=== PATIENT | male | born 1950 | race Caucasian/White ===

== ENCOUNTER → 2017-11-11 | Outpatient (REF) | payer MEDICARE, OTHER ==
[~2017-11-11] MED LIST: ASPI-1471 PO; LISI5TAB25 PO; OMEP-218 PO
== END ==
LOC: ZZSENDIN 14:05
PROVIDERS: ATTEND Family Medicine
DX: Z00.00 Encounter for general adult medical examination without abnormal findings (principal); E87.5 Hyperkalemia
CPT/HCPCS: 82310; 82374; 82435; 82565; 82947; 84132; 84295; 84520

== ENCOUNTER → 2017-11-12 | Outpatient (CLI) | payer MEDICARE, OTHER | LOC: LAB 08:01 | PROVIDERS: ATTEND Family Medicine | DX: E78.5 Hyperlipidemia, unspecified (principal) | CPT/HCPCS: 36415; 82465; 83718; 84478 ==

== ENCOUNTER 2018-02-08 14:15 | Outpatient (RCR) | payer MEDICARE, OTHER ==
[2018-02-01 08:39] LABS: PLATELET COUNT, AUTOMATED 172 K/uL (150-450)
[2018-02-08 14:25] VITALS: BP 124/72
--- NOTE | 2018-02-09 19:19 | ONCOLOGY FOLLOW UP NOTE ---
EVENT DATE: February 08, 2018 CHIEF COMPLAINT/REASON FOR VISIT Mr. Benson is a very pleasant 67-year-old gentleman with HALLMAN state 0 CLL here for followup. HISTORY OF PRESENT ILLNESS Marin returns. They are very happy here in [place] and are closer to their grandkids who are approximately ages 8 and 5 at this time. 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 His health has been very good and continues to be excellent. No issues with infection. He continues to have no indications for treatment with no anemia, thrombocytopenia, kidney dysfunction, liver dysfunction, frequent infections or other systems of concern. No other issues today. PAST MEDICAL/SURGICAL HISTORY 1. Hypertension. 2. Pre-diabetes. 3. Hyperlipidemia. 4. CLL, Hallman stage 0, diagnosed in 2008; no treatment to date. FAMILY HISTORY Remarkable for mother who from lung cancer. Father with COPD. SOCIAL HISTORY The patient and presented with his . He has two grandkids who live in town here, ages 6 and 3, a boy and a girl. 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 MEDICATION LIST 1. Lisinopril 5 mg daily. 2. Prilosec as needed. 3. Aspirin 81 mg. REVIEW OF SYSTEMS CONSTITUTIONAL: No fevers, chills or weight change. HEENT: No headache or vision changes. CARDIOVASCULAR: No chest pain, dyspnea on exertion or edema. RESPIRATORY: No shortness of breath, wheeze or cough. GASTROINTESTINAL: No nausea or vomiting. GENITOURINARY: No dysuria or hematuria. MUSCULOSKELETAL: No weakness or joint pain. PSYCHIATRIC: No anxiety or depression. ENDOCRINE: No heat or cold intolerance. The remainder of the 14-point review of systems otherwise negative. PHYSICAL EXAMINATION VITAL SIGNS: Blood pressure 124/72, pulse 66, respiratory rate 16, temperature 97.8 Fahrenheit, oxygen saturation 95% on room air. Weight 93.3 kg. Pain 0/10 , fatigue 0/10. GENERAL: Stable condition resting comfortably in the chair. HEENT: Normocephalic, atraumatic. CARDIOVASCULAR: Regular rate and rhythm. LYMPHATIC: No appreciable cervical, supraclavicular or axillary adenopathy. ENDOCRINE: No heat or cold intolerance. PSYCHIATRIC: Normal mood and affect. The remainder of the physical exam is otherwise unremarkable. IMPRESSION AND PLAN Mr. Benson is a pleasant 67-year-old gentleman with the following: HALLMAN stage 0 chronic lymphocytic leukemia. Continue active surveillance with labs every six months. We reviewed the natural history and treatment options of CLL. We discussed potential options including Rituxan and ibrutinib. However, there are no indications for treatment at this time. Would like to see him twice a year. There is a very low chance of rapid progression, but would not like to wait a full year to get labs. He expresses understanding and appreciation with this plan. Billing: Return visit level 3. Total time 20 minutes, counseling time 15. MTDD
== END 2018-02-24 13:53 | disposition home or self-care (01) ==
LOC: ONC 14:15
PROVIDERS: ATTEND Internal Medicine
DX: C91.10 Chronic lymphocytic leukemia of B-cell type not having achieved remission (principal); I10 Essential (primary) hypertension; R73.03 Prediabetes; E78.5 Hyperlipidemia, unspecified
CPT/HCPCS: 36415; 82784; 85025; G0463; 82040; 82247; 82310; 82374; 82435; 82565; 82947; 84075; 84132; 84155; 84295; 84450; 84460; 84520; 99212

== ENCOUNTER 2018-03-26 03:33 | Day surgery (SDC) | payer MEDICARE, OTHER ==
[~2018-03-26] VITALS: Ht 172.7 cm; Wt 93.0 kg
[2018-03-26 15:07] VITALS: BP 159/86
[2018-03-26] MEDS ORDERED: OPHTHALMIC PROCEDURE 2 OS PRN (15:30)
[2018-03-26] MEDS ORDERED: LIDOCAINE/SOD BICARB 8.4% SYR ID ONE (15:30)
[2018-03-26] MEDS ORDERED: OPHTHALMIC PROCEDURE 1 OS PRN (15:30)
[2018-03-26] MEDS ORDERED: acetaZOLAMIDE 500 MG CAPCR PO ONE (15:30)
[2018-03-26] MEDS: OPHTHALMIC PROCEDURE 2 OS PRN ×2 (15:30→15:37)
[2018-03-26] MEDS ORDERED: NORMOSOL R SOLN(*) 1000 ML BAG 1,000 ML IV PRN (15:30)
[2018-03-26 16:48] VITALS: BP 147/108
--- NOTE | 2018-03-26 17:40 | FOSTER LEFT EYE CATARACT ---
EVENT DATE: March 26, 2018 SURGEON: Juan Carlos Browning MD ANESTHESIOLOGIST: None ANESTHESIA: Topical PREOPERATIVE DIAGNOSIS Cataract, left eye. POSTOPERATIVE DIAGNOSIS Cataract, left eye. PROCEDURE Phacoemulsification of cataractous lens with implantation of an intraocular lens , left eye. DESCRIPTION OF PROCEDURE The risks and benefits and alternatives were carefully discussed with the patient, and preoperative consent was obtained. The patient was brought to the operating room. After receiving topical anesthetic, the patient was prepped and draped using sterile technique in the usual manner. A stab incision was made, and the chamber was inflated with preservative-free lidocaine. DuoVisc was injected to inflate the chamber. A 2.2 mm blade was used to enter the anterior chamber. Utrata forceps were used to tear a circular capsulorrhexis. BSS was used to hydrodissect the nucleus. Phaco tip was introduced, and the nucleus was chopped into four quadrants. Each quadrant was removed. The I/A tip was used to remove the cortex. The bag was inflated with ProVisc. The intraocular lens was injected into the capsular bag. The I/A tip was used to remove the ProVisc. The wound was found to be watertight. Vigamox, Nevanac, and Maxitrol ointment were placed in the patient's eye. The patient's eye was patched, and the patient was taken to the recovery room in stable condition. The patient was examined in the recovery room and found to be stable prior to release from the hospital. PEDRO
== END 2018-03-26 17:05 | disposition home or self-care (01) ==
LOC: OR 03:33
PROVIDERS: ATTEND Ophthalmology
DX: H25.12 Age-related nuclear cataract, left eye (principal)
CPT/HCPCS: 66984; A9270; V2632

== ENCOUNTER 2018-08-02 11:15 | Outpatient (RCR) | payer MEDICARE, OTHER ==
[2018-07-19 09:44] LABS: PLATELET COUNT, AUTOMATED 188 K/uL (150-450)
[2018-08-02 11:20] VITALS: BP 107/70
[2018-08-02] MEDS ORDERED: INFLUENZA VIRUS VAC 0.5ML SYR IM ONLY ONE (11:50)
--- NOTE | 2018-08-03 03:20 | SCHUSTER ONCOLOGY NOTE ---
EVENT DATE: August 02, 2018 CHIEF COMPLAINT/REASON FOR VISIT Mr. Benson is a very pleasant 68-year-old gentleman with Hallman stage 0 CLL, here for followup. HISTORY OF PRESENT ILLNESS Marin returns. He is doing quite well. His grandkids are in second grade and kindergarten right now and doing quite well. 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 His health continues to be excellent. No issues with recurring infections. No fevers, chills, concerning lumps or bumps, or other red-flag symptoms. His labs look well, although his white blood cell count is high. He has no indications for treatment, though, with no anemia, thrombocytopenia, kidney dysfunction, liver dysfunction, frequent infections, or other issues of concern. PAST MEDICAL/SURGICAL HISTORY 1. Hypertension. 2. Pre-diabetes. 3. Hyperlipidemia. 4. CLL, Hallman stage 0, diagnosed in 2008; no treatment to date. FAMILY HISTORY Remarkable for mother who from lung cancer. Father with COPD. SOCIAL HISTORY The patient and presented with his . He has two grandkids who live in town here, ages 6 and 3, a boy and a girl. 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 MEDICATION LIST 1. Lisinopril 5 mg daily. 2. Prilosec as needed. 3. Aspirin 81 mg. REVIEW OF SYSTEMS CONSTITUTIONAL: No fevers, chills or weight change. HEENT: No headache or vision changes. CARDIOVASCULAR: No chest pain, dyspnea on exertion or edema. RESPIRATORY: No shortness of breath, wheeze or cough. GASTROINTESTINAL: No nausea or vomiting. GENITOURINARY: No dysuria or hematuria. MUSCULOSKELETAL: No weakness or joint pain. PSYCHIATRIC: No anxiety or depression. ENDOCRINE: No heat or cold intolerance. The remainder of the 14-point review of systems otherwise negative. PHYSICAL EXAMINATION VITAL SIGNS: Blood pressure 107/70, pulse 62, respiratory rate 16, temperature 97.4 Fahrenheit, oxygen saturation 92% on room air. Weight 94.6 kg. Pain 0/10, fatigue 0/10. Due for his flu shot, and will get it today. GENERAL: Stable condition; resting comfortably in the chair. HEENT: Normocephalic, atraumatic. CARDIOVASCULAR: Regular rate and rhythm. LUNGS: Clear to auscultation bilaterally. ABDOMEN: Soft, nontender, nondistended. EXTREMITIES: No clubbing, cyanosis, or edema. LYMPHATIC: No appreciable cervical, supraclavicular or axillary adenopathy. The remainder of the physical exam is unremarkable. IMPRESSION/REPORT/PLAN Mr. Benson is a pleasant 59-year-old gentleman with the following: Hallman stage 0 chronic lymphocytic leukemia. Continue active surveillance with labs and exams every six months. We again reviewed the natural history and treatment options of chronic lymphocytic leukemia. We discussed potential options including Rituxan or ibrutinib. There are no indications for treatment at this time, and we would like to continue to see him twice per year. There is a very low chance of rapid progression, but would not like to wait a full year for labs. Answered all of his questions today. BILLING Return visit, level 3. Total time 20 minutes, counseling time 15. MTDD
== END 2018-08-25 13:24 | disposition home or self-care (01) ==
LOC: ONC 11:15
PROVIDERS: ATTEND Internal Medicine
DX: C91.10 Chronic lymphocytic leukemia of B-cell type not having achieved remission (principal); Z23 Encounter for immunization; R73.03 Prediabetes
CPT/HCPCS: 82728; 82784; 83540; 83550; 85025; 90471; G0463; Q2037; 82040; 82247; 82310; 82374; 82435; 82565; 82947; 84075; 84132; 84155; 84295; 84450; 84460; 84520; 90674; 99212

== ENCOUNTER 2019-02-08 11:22 | Outpatient (RCR) | payer MEDICARE, OTHER ==
[2019-01-17 09:33] VITALS: BP 144/91
[2019-01-17 09:48] LABS: PLATELET COUNT, AUTOMATED 180 K/uL (150-450)
[2019-02-08 11:31] VITALS: BP 120/80
--- NOTE | 2019-02-08 21:58 | ONCOLOGY FOLLOW UP NOTE ---
EVENT DATE: February 08, 2019 CHIEF COMPLAINT/REASON FOR VISIT Mr. Benson is a very pleasant 68-year-old gentleman with Hallman stage 0 CLL, here for semi-annual followup. HISTORY OF PRESENT ILLNESS Marin returns today for ongoing followup for his CLL. He reports doing well since his last visit. He is enjoying his half-way. 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 He enjoys his grandchildren, who are currently in second grade and kindergarten. He reports that his health continues to be excellent. He has not had any changes. He denies any fevers, chills, or recent infections. No unexplained weight loss. No unusual lumps or bumps or other B-type symptoms. He does report occasional night sweats, which he tells me have been ongoing for some time now. He reports on an average one episode per week. These are non-drenching and quite manageable. His labs have been stable recently, although his white blood cell count is high. We have not had any indication for treatment with no signs of anemia, thrombocytopenia, kidney dysfunction, liver dysfunction, frequent infections, or other concerning issues. He is accompanied in the office today by his . He had labs for today done a couple of weeks ago in preparation for today's appointment. PAST MEDICAL/SURGICAL HISTORY 1. Hypertension. 2. Pre-diabetes. 3. Hyperlipidemia. 4. CLL, Hallman stage 0, diagnosed in 2008; no treatment to date. FAMILY HISTORY Remarkable for mother who from lung cancer. Father with COPD. SOCIAL HISTORY The patient and presented with his . He has two grandkids who live in town here, ages 6 and 3, a boy and a girl. 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 MEDICATION LIST 1. Lisinopril 5 mg daily. 2. Prilosec as needed. 3. Aspirin 81 mg. ALLERGIES PENICILLINS. REVIEW OF SYSTEMS CONSTITUTIONAL: Patient denies any recent fevers, chills, or recent infections. No weight change. He does have occasional night sweats, approximately one episode per week, non-drenching. HEENT: He denies any vision changes or headache. No tinnitus. No mouth sores. No dysphagia or odynophagia. CARDIOVASCULAR: No chest pain, syncope, or presyncope. RESPIRATORY: He denies any cough, shortness of breath, hemoptysis, or pleuritic chest pain. GASTROINTESTINAL: No abdominal pain, nausea, vomiting, constipation, diarrhea, bright red blood per rectum, or melena. Appetite is excellent. GENITOURINARY: No dysuria or hematuria. MUSCULOSKELETAL: No focal areas of pain or weakness. PSYCHIATRIC: He denies any severe anxiety, severe depression, suicidal or homicidal ideation. ENDOCRINE: No heat or cold intolerance. He reports excellent energy levels. He has one episode of night sweats per week, and these are mild and manageable. These are non-drenching. He reports only very minimal fatigue and says that he usually gets tired in the late afternoon, but this has been stable for the last two to three years. SKIN: No rash. No unusual bumps or lumps. Remainder of a 12-point review of systems is performed today and is otherwise negative. PHYSICAL EXAMINATION VITAL SIGNS: Weight 94.6 kg. T 97.7, P 66, R 16, BP 120/80, oxygen saturation 96% room air. Currently rates pain level at "0/10." Currently rate fatigue level at "0/10." GENERAL: In general, this is a pleasant 68-year-old gentleman who appears healthy, well nourished, well hydrated, and is in no acute distress. HEAD: Atraumatic, normocephalic. EYES: Sclerae anicteric. ENT, MOUTH: Moist mucous membranes. No oral ulcerations. NECK: Supple. No lymphadenopathy. CARDIOVASCULAR: Regular rate and rhythm. No ectopy. LUNGS: Clear to auscultation bilaterally. No focal findings. ABDOMEN: Soft, nontender, nondistended. Bowel sounds positive x4. No organomegaly. EXTREMITIES: No clubbing, cyanosis, or edema. LYMPHATICS: No palpable cervical, supraclavicular, or axillary adenopathy. NEUROLOGIC: Patient is awake, alert, oriented x3. PSYCHIATRIC: Mood and affect are appropriate. MUSCULOSKELETAL: Gait and ambulation are steady. DERM: No rash, petechiae, or purpura. LABORATORY Labs from 01/17/19. CBC: WBC 45.8, stable compared to previous at 44.9, hemoglobin 16.0, hematocrit 48.9%, platelets 180,000, ANC 8.7. Lymphocytes 60%. CMP: Sodium minimally low at 136, potassium normal, 4.3. Serum creatinine normal at 1.1, stable compared to previous. Total bilirubin normal, 0.7. AST is elevated at 118, up from 48 on 07/19/18. ALT normal at 21. Alkaline phosphatase normal at 73. Total protein normal, 7.2, with albumin normal, 4.1. Immunoglobulin levels: IgG 916, normal. IgA 324, normal. IgM 52, normal. IMPRESSION AND PLAN Mr. Benson is a pleasant 68-year-old gentleman with a history of Hallman stage 0 chronic lymphocytic leukemia. He is currently on active surveillance with followup exams and labs every six months. He is aware of the natural history of chronic lymphocytic leukemia and treatment options. We have previously discussed potential treatment options, to include Rituxan or ibrutinib. Currently, there are no indications for treatment, and labs have been stable. His white blood cell count, though elevated, is quite stable in the 40,000 range. We discussed that although there is a very low chance of rapid progression, we would at least like to see him semi-annually for labs and visits. Patient is aware of this and verbalized understanding. He is not having any symptoms other than an occasional non-drenching night sweat, which he says on an average happens maybe once a week. This is not new for him. Otherwise, he is doing quite excellent. He does have an elevated AST at 118, though the remainder of his liver enzymes were normal. We discussed this today. As for alcohol intake, he's not drinking more than two alcoholic beverages per day. 1. Hallman stage 0 chronic lymphocytic leukemia: Reviewed most recent labs with patient and today. He will continue with semi-annual followup and semi- annual labs to include CBC, CMP, and immunoglobulin levels. 2. Patient will return to clinic in six months for followup with MD. 3. He may certainly return sooner if needed, and we discussed when to call our office in particular for any new or worsening B-type symptoms. PEDRO
== END 2019-02-28 13:19 | disposition home or self-care (01) ==
LOC: ONC 11:22
PROVIDERS: ATTEND Internal Medicine
DX: C91.10 Chronic lymphocytic leukemia of B-cell type not having achieved remission (principal)
CPT/HCPCS: 36415; 82784; 85025; G0463; 82040; 82247; 82310; 82374; 82435; 82565; 82947; 84075; 84132; 84155; 84295; 84450; 84460; 84520; 99212

== ENCOUNTER → 2019-03-01 | Outpatient (CLI) | payer MEDICARE, OTHER ==
--- NOTE | 2019-03-01 12:26 | RADIOLOGY IMAGING REPORT ---
FACILITY: [facility] PATIENT NAME: Marin Benson : 1950 MR: [id number] V: [id number] EXAM DATE: ORDERING PHYSICIAN: DONNIE CHO TECHNOLOGIST: Location: [facility] Patient: Marin Benson : 1950 Visit/Account:[id number] Date of Sevice: 03/01/2019 CT ABDOMEN PELVIS W/O CON HISTORY: Bilateral flank pain and hematuria TECHNIQUE: Axial images acquired through the abdomen/pelvis. Coronal and sagittal reformatting also performed. No IV contrast administered.Dose Lowering Technique One of the following dose optimization techniques was utilized in the performance of this exam: Autom ated exposure control; adjustment of the mA and/or kV according to the patient's size; or use of an i terative reconstruction technique. Specific details can be referenced in the facility's radiology C T exam operational policy. COMPARISON: None. FINDINGS: Visualized lung bases: Small amount of pleural parenchymal scarring in the medial right lower lobe Hepatobiliary: Negative. Spleen: Negative. Adrenals: Negative. Pancreas: Negative. Kidneys ureters and bladder: There Is mild perinephric stranding bilaterally. There is a 3 mm nonobs tructing calculus in the mid left renal collecting system. There is a tiny cortical hypodensity proj ecting from the anterior inferior pole of the left kidney Genitalia: Surgical clips in the scrotum bilaterally GI: Diverticulosis of the left side of the colon although no CT evidence of acute diverticulitis. Vessels/spaces/nodes: Mild to moderate atherosclerotic calcifications of the abdominal aorta and bra idh vessels Bones/soft tissues: There is a small umbilical hernia containing fat Additional findings: None pertinent. IMPRESSION: There is a 3 mm nonobstructing calculus mid pole left kidney No evidence of hydronephrosis or hydroureter Mild perinephric stranding bilaterally Diverticulosis of the left side of the colon although no CT evidence of acute diverticulitis Small umbilical hernia containing fat Small amount of pleural parenchymal scarring in the medial right lower lobe Report Dictated By: Glenna Lee MD at 03/01/2019 11:56 AM Report E-Signed By: Glenna Lee MD at 03/01/2019 12:20 PM WSN:[email or web address]
== END ==
LOC: CT 00:30
PROVIDERS: ATTEND Family Medicine
DX: N20.0 Calculus of kidney (principal); K57.30 Diverticulosis of large intestine without perforation or abscess without bleeding; K42.9 Umbilical hernia without obstruction or gangrene; R91.8 Other nonspecific abnormal finding of lung field; I70.0 Atherosclerosis of aorta
CPT/HCPCS: 74176

== ENCOUNTER → 2019-03-12 | Outpatient (CLI) | payer MEDICARE, OTHER | LOC: RESP 20:49 | PROVIDERS: ATTEND Family Medicine | DX: G47.33 Obstructive sleep apnea (adult) (pediatric) (principal); G47.61 Periodic limb movement disorder ==